=== PATIENT | female | born 1985 | race Caucasian/White ===

== ENCOUNTER 2017-10-26 06:07 | Emergency (ER) | payer OTHER ==
[~2017-10-26] VITALS: Ht 165.1 cm; Wt 83.9 kg
[2017-10-26 06:09] VITALS: BP_SYST 121
[2017-10-26] MEDS ORDERED: ONDANSETRON HCL 4 MG/2 ML VIAL IVP ONE (06:30)
[2017-10-26] MEDS ORDERED: NACL 0.9% 1,000 ML IV ONE (06:45)
[2017-10-26] MEDS ORDERED: KETOROLAC TROMETHAMINE 15 MG VIAL IVP ONE (06:45)
[2017-10-26 06:56] LABS: BILIRUBIN,URINE NEGATIVE (NEGATIVE); BLOOD, URINE NEGATIVE (NEGATIVE); CLARITY/URINE CLEAR (CLEAR); COLOR,URINE YELLOW (YELLOW); GLUCOSE,URINE NEGATIVE (NEGATIVE); KETONES,URINE 3+ (NEGATIVE); LEUKOCYTE ESTERASE ,URINE NEGATIVE (NEGATIVE); NITRITE, URINE NEGATIVE (NEGATIVE); PH,URINE 5.5 (5.0-8.0); PROTEIN URINE TRACE (NEGATIVE); UROBILINOGEN,URINE 0.2 (0.2-1.0)
[2017-10-26 06:56] LABS: HEMATOCRIT 42.3 % (36-48); HEMOGLOBIN 14.5 g/dL (12.0-16.0); MEAN CORPUSCULAR HEMOGLOBIN 30 pg (27-31); MEAN CORPUSCULAR HGB CONC 34 % (32-36); MEAN CORPUSCULAR VOLUME 89 fL (79.0-98.0); PLATELET COUNT (AUTO) 286 K/uL (130-430); RED BLOOD CELL COUNT(AUTO) 4.78 MIL/uL (4.2-6.2); RED CELL DISTRIBUTION WIDTH 12.8 % (9.0-15.0); WHITE BLOOD COUNT (AUTO) 18.6 K/uL (4.8-10.8)
[2017-10-26 07:13] LABS: URINE AMPHETAMINE POSITIVE (NEG <=500)
[2017-10-26 07:14] LABS: BARBITURATE, URINE NEGATIVE (NEG <=200); BENZODIAZEPINE, URINE NEGATIVE (NEG <=150); CANNABINOID, URINE NEGATIVE (NEG <=50); COCAINE, URINE NEGATIVE (NEG <=150); METHAMPHETAMINES SCREEN,URINE NEGATIVE (NEG <=500); OPIATE, URINE NEGATIVE (NEG <=100); PHENCYCLIDINE SCREEN,URINE NEGATIVE (NEG <=25); UR TRICYCLIC ANTIDEPRESSANTS NEGATIVE (NEG <=300); URINE METHADONE NEGATIVE (NEG <=200); URINE OXYCODONE SCREEN NEGATIVE (NEG <=100); URINE PROPOXYPHENE SCREEN NEGATIVE (NEG <=300)
[2017-10-26 07:18] LABS: POTASSIUM 3.9 mmol/L (3.5-5.1)
[2017-10-26 07:19] LABS: ALBUMIN 3.8 g/dL (3.4-4.8); CALCIUM 9.1 mg/dL (8.4-11.0); CREATININE 0.8 mg/dL (0.55-1.30); TOTAL BILIRUBIN 0.6 mg/dL (0.0-1.0)
[2017-10-26 07:20] LABS: BAND % (MANUAL) 8 % (0-6)
[2017-10-26 07:21] LABS: BASOPHILS % (MANUAL) 0 % (0-2); EOSINOPHILS % (MANUAL) 0 % (0-7); LYMPHOCYTES % (MANUAL) 4 % (20-46); MONOCYTES % (MANUAL) 5 % (0-11)
[2017-10-26 07:25] LABS: BACTERIA,URINE FEW /HPF (None Seen); MUCUS,URINE 1+ /LPF (None Seen); RBC,URINE 0-3 /HPF (0-3); WBC,URINE 0-3 /HPF (0-3); YEAST,URINE None Seen /HPF (None Seen)
[2017-10-26 07:51] VITALS: BP_SYST 117
== END 2017-10-26 07:51 | disposition home or self-care (01) ==
LOC: SED 06:07
DX: K52.9 Noninfective gastroenteritis and colitis, unspecified (principal); R35.0 Frequency of micturition; R50.9 Fever, unspecified
CPT/HCPCS: 36415; 80053; 80307; 81000; 85007; 85027; 96374; 96375; 99284; J1885; J2405; J7030

== ENCOUNTER 2019-03-14 07:32 | Emergency (ER) | payer OTHER ==
[~2019-03-14] VITALS: Ht 165.1 cm; Wt 84.4 kg
[2019-03-14 07:38] VITALS: BP_SYST 116
--- NOTE | 2019-03-14 07:43 | NUR ---
ambulated to bed 8
--- NOTE | 2019-03-14 07:45 | NUR ---
Patient arrived in the ED c/o cough, chest congestion, headaches, and fevers (Tmax 99F) that started last Wednesday - Patient is taking Zpak, cough meds and OTC cold meds; no relief per patient. Patient is alert and oriented x4, respirations even and unlabored, speaking in full sentences, ambulating with a steady gait. VSS, pain level 0/10. Denied any chest pain or SOB. Informed of wait time. Instructed to notify ED staff for any changes in condition or worsening of symptoms. Patient verbalized understanding.
--- NOTE | 2019-03-14 07:49 | NUR ---
ER Dr. Bowman at bedside examining patient.
--- NOTE | 2019-03-14 07:59 | NUR ---
Patient given written and verbal discharge instructions and verbalizes understanding. ER MD discussed with patient the results and treatment provided. Patient in stable condition. ID arm band removed. Rx of Prednisone and Ibuprofen given. Patient educated on pain management and to follow up with PMD. Pain Scale 0/10. Opportunity for questions provided and answered. Medication side effect fact sheet provided.
[2019-03-14 08:00] VITALS: BP_SYST 116
== END 2019-03-14 08:00 | disposition home or self-care (01) ==
LOC: SED 07:32
DX: R05 Cough (principal); R50.9 Fever, unspecified; R07.9 Chest pain, unspecified
CPT/HCPCS: 99283

== ENCOUNTER 2020-04-21 17:23 | Emergency (ER) | payer OTHER ==
[~2020-04-21] VITALS: Ht 165.1 cm; Wt 90.7 kg
[2020-04-21 17:30] VITALS: BP_SYST 132
[2020-04-21 19:04] LABS: BLOOD, URINE 3+ (NEGATIVE); CLARITY/URINE SL CLOUDY (CLEAR); COLOR,URINE YELLOW (YELLOW); GLUCOSE,URINE NEGATIVE (NEGATIVE); KETONES,URINE NEGATIVE (NEGATIVE); LEUKOCYTE ESTERASE ,URINE TRACE (NEGATIVE); NITRITE, URINE NEGATIVE (NEGATIVE); PH,URINE 5.5 (5.0-8.0); PROTEIN URINE 1+ (NEGATIVE); UROBILINOGEN,URINE 0.2 (0.2-1.0)
[2020-04-21 19:23] LABS: BILIRUBIN,URINE NEGATIVE (NEGATIVE)
[2020-04-21 19:32] LABS: BACTERIA,URINE FEW /HPF (None Seen); MUCUS,URINE None Seen /LPF (None Seen); RBC,URINE >100 /HPF (0-3)
[2020-04-21] MEDS ORDERED: SULFAMETHOXAZOLE/TRIMETHOPR DS 1 TABLET ONE (20:11)
[2020-04-21] MEDS ORDERED: SULFAMETHOXAZOLE/TRIMETHOPR DS 1 TABLET PO ONE (20:15)
[2020-04-21 20:21] VITALS: BP_SYST 132
== END 2020-04-21 20:21 | disposition home or self-care (01) ==
LOC: SED 17:23
DX: R31.9 Hematuria, unspecified (principal); F17.200 Nicotine dependence, unspecified, uncomplicated; Z87.442 Personal history of urinary calculi; Z76.0 Encounter for issue of repeat prescription
CPT/HCPCS: 81000-TC; 99283